=== PATIENT | male | born 1935 | race Caucasian/White ===

== ENCOUNTER 2016-11-19 09:24 | Emergency (ER) | payer MEDICARE, OTHER ==
[~2016-11-19 09:24] MED LIST: ACET500CAP PO; ASAB PO; BETAMETH DIP0.05 % TOP; COZ25 PO; CRESTOR20 MG PO; DIOV80 PO; FISH-EPA1000 MG PO; FLAG500TAB PO; FLORASTOR250 MG PO; FOLIC PO; GLUCPH PO; HYDROCHLOROT12.5 MG OR; KLOR-CON M1010 MEQ PO; KLOR-CON M2020 MEQ PO; L40 PO; LESXL80 PO; LEVAQUIN750 MG PO; LOFIBRA160 MG PO; LOM PO; LOP50 PO; MTX2.5 PO; MULTIVIT/MIN PO; NEO500 PO; NEUR300 PO; OTC ALLERGY EYE DROP OPH; P20 PO; P5 PO; PERCOCET1 TA2 PO; PLAQ200B PO; PLAVIX PO; PRAVACHOL40 MG PO; PREDNISONE2.5 MG PO; PROTONIX PO; PROTONIX20 MG PO; REMICADE IV; TYLENOL ARTH650 MG PO; VOLT75 PO; Z100 PO; Z300 PO; ZESTRIL10 MG PO; ZOFRAN8 PO
== END 2016-11-19 11:42 | disposition home or self-care (01) ==
LOC: ER 09:24
DX: L50.9 Urticaria, unspecified (principal); T50.905A Adverse effect of unspecified drugs, medicaments and biological substances, initial encounter; I10 Essential (primary) hypertension; K21.9 Gastro-esophageal reflux disease without esophagitis; E11.9 Type 2 diabetes mellitus without complications; Z87.891 Personal history of nicotine dependence; Z95.1 Presence of aortocoronary bypass graft; Z98.890 Other specified postprocedural states; Z88.5 Allergy status to narcotic agent; Z79.52 Long term (current) use of systemic steroids; Z79.899 Other long term (current) drug therapy
CPT/HCPCS: 96374; 99283; J1200